=== PATIENT | male | born 1955 | race Caucasian/White ===

== ENCOUNTER 2025-05-14 06:34 | Day surgery (SDC) | payer MEDICARE, OTHER ==
[2025-05-09 09:06] VITALS: BMI 24.4
[2025-05-14] MEDS ORDERED: PROPOFOL 20 ML ONE (08:33)
[2025-05-14] MEDS ORDERED: Bacitracin 1 PK ONE (08:33)
[2025-05-14] MEDS ORDERED: Lidocaine 1% w/Epinephrine 1:200K 30 ML VIAL ONE (08:33)
[2025-05-14] MEDS ORDERED: Lidocaine 1% PF 5 ML VIAL ONE (08:34)
[2025-05-14] MEDS ORDERED: Rocuronium Bromide 10 MG/ML (10ML VIAL) ONE (08:34)
[2025-05-14 09:00] LABS: Hematocrit 41.6 % (38.8-50.0); Hemoglobin 14.1 g/dL (13.5-17.5)
[2025-05-14] MEDS ORDERED: AFRIN NASAL MIST 15 ML BOT ONE (09:03)
[2025-05-14] MEDS ORDERED: SUGAMMADEX SODIUM 200 MG/2 ML VIAL ONE (09:07)
[2025-05-14 09:11] LABS: Anion Gap 12 mmol/L (10-20); BUN (Urea Nitrogen) 15 mg/dL (8.4-25.7); Calc. Creatinine Clearance 107 mL/min (70-130); Calcium 8.8 mg/dL (7.8-10.44); Carbon Dioxide 25 mmol/L (23-31); Chloride 105 mmol/L (98-107); Glucose 100 mg/dL (80-115); Potassium 4.2 mmol/L (3.5-5.1); Sodium 138 mmol/L (136-145)
== END 2025-05-14 11:00 | disposition home or self-care (01) ==
LOC: CSHSDC 06:34
PROVIDERS: ATTEND Otolaryngology Plastic Surgery within the Head & Neck
PROC: 09RM07Z Replacement of Nasal Septum with Autologous Tissue Substitute, Open Approach (ICD-10-PCS; principal; 2025-05-14)
PROC: 09TL7ZZ Resection of Nasal Turbinate, Via Natural or Artificial Opening (ICD-10-PCS; 2025-05-14)
DX: J34.2 Deviated nasal septum (principal); J34.3 Hypertrophy of nasal turbinates; J34.829 Nasal valve collapse, unspecified
CPT/HCPCS: 30520; 30802; 80048; 85014; 85018; 93005; J1100; J2704; 36415; 93010